=== PATIENT | female | born 1930 | race Hispanic/Latino ===

== ENCOUNTER 2016-12-14 07:56 | Emergency (ER) | payer MEDICARE ==
[2016-12-14 08:34] VITALS: BP 186/71
[2016-12-14] MEDS ORDERED: TYLENOL PO ONE (09:03)
--- NOTE | 2016-12-14 10:08 | Cat Scan Report ---
CT scan of head without contrast: History: Fall. Findings: Ventricles are normal in size and midline in location. Periventricular area of low attenuation. Mild volume loss. No extra-axial fluid collection. Normal brainstem and cerebellum. Normal sinuses and mastoid air cells. Impression: No acute intracranial abnormality. 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
--- NOTE | 2016-12-14 10:18 | Emergency Department Report ---
Head Injury w/o Laceration - HPI Chief Complaint: Fall Stated Complaint: FALL/INJURY Time Seen by Provider: 12/14/16 08:53 Occurred When: Today Mechanism: Direct Blow Location: Temporal Severity: mild Head Inj w/o Lac: Yes Headache, Yes Swelling, Yes Bruising, No Loss of Consciousness, No Nausea, No Blurred Vision, No Altered Mental Status, No Focal Deficit, No Break in Skin, No Bleeding ED General PMH - Social History Smoking Status: Never Smoker ED Neuro ROS - Review of Systems Eyes (ROS): no symptoms reported Ears, Nose, Mouth, Throat: no symptoms reported Respiratory: no symptoms reported Cardiology: no symptoms reported Musculoskeletal: no symptoms reported Skin: no symptoms reported Neurological: no symptoms reported. denies: emotional problems, petit mal seizures, unable to move lower ext Head Injury W/O Lac Exam - Exam General: Vital signs noted. No distress. Alert and acting appropriately. Head: Yes Pupils are PERRL, No Hemotympanum, No Hematoma/Ecchymosis, No Epistaxis, No Stepoff/Deformity, No Laceration, No Abrasion Chest, Abd, & Ext: No Neck Pain, No Clear Lung Sounds, No Chest Injury/Pain, No Regular Heart Rhythm, No Heart Murmur Neuroligical (Head Inj W/O Lac: No Lethargy, No Disorientation ED Critical Care Note - Critical Care Note Comments: Patient doing well, head ct negative , she is at her baseline , no reason for admission at this time. ED Disposition Clinical Impression: Head injury due to trauma Disposition: DISCHARGED TO HOME OR SELFCARE Is pt being admited?: No Does the pt Need Aspirin: No Condition: Good Instructions: Concussion (ED) Referrals: PRIMARY CARE, [Primary Care Provider] - 3-5 Days Time of Disposition: 11:19
== END 2016-12-14 13:50 | disposition home or self-care (01) ==
LOC: ED 07:56
DX: S09.90XA Unspecified injury of head, initial encounter (principal); W18.30XA Fall on same level, unspecified, initial encounter; Y93.9 Activity, unspecified; Y92.9 Unspecified place or not applicable; Y99.9 Unspecified external cause status
CPT/HCPCS: 70450; 99283